=== PATIENT | male | born 1965 | race Caucasian/White ===

== ENCOUNTER 2018-10-25 14:33 | Inpatient (IN) | payer OTHER ==
[2018-10-25] MEDS ORDERED: MORPHINE SULFATE 4 MG/ML SYRINGE IV PRN (15:03)
[2018-10-25] MEDS ORDERED: ACETAMINOPHEN TAB 325 MG TAB PO PRN (15:03)
[2018-10-25] MEDS ORDERED: ONDANSETRON 4 MG/2 ML VIAL IVP PRN (15:03)
[2018-10-25] MEDS ORDERED: NALOXONE 0.4 MG/ML 1 ML VIAL IV PRN (15:03)
--- NOTE | 2018-10-25 15:04 | ED ---
ENT HPI - General Stated complaint: Dental /abcess Time Seen by Provider: 10/25/18 14:39 Source: patient, RN notes reviewed Mode of arrival: EMS Limitations: no limitations - History of Present Illness Initial comments: 53-year-old male presented to the ER as a transfer from [facility] for dental abscess. Patient has been on Pen-Vee K for last 4 days with no improvement, worsening symptoms. Patient was seen at [facility] was given clindamycin, has CT which showed subperiosteal abscess. Patient states he occasionally does have some drainage. Patient reports fevers and chills, night sweats. Patient has pain with movement of his jaw. Patient states he does have some known cavities. Patient offers no other complaints. Review of Systems ROS Statement: Those systems with pertinent positive or pertinent negative responses have been documented in the HPI. ROS Other: All systems not noted in ROS Statement are negative. Past Medical History Past Medical History: No Reported History History of Any Multi-Drug Resistant Organisms: None Reported Past Surgical History: No Surgical Hx Reported Past Psychological History: No Psychological Hx Reported Smoking Status: Current every day smoker Past Alcohol Use History: Occasional Past Drug Use History: None Reported General Exam Limitations: no limitations General appearance: alert, in no apparent distress Head exam: Present: atraumatic, normocephalic, normal inspection Eye exam: Present: normal appearance, PERRL, EOMI. Absent: scleral icterus, conjunctival injection, periorbital swelling ENT exam: Present: mucous membranes moist. Absent: normal oropharynx (Dental caries noted, large swelling on the right cheek, right mandibular region with tenderness) Neck exam: Present: normal inspection, full ROM, lymphadenopathy. Absent: tenderness, meningismus Respiratory exam: Present: normal lung sounds bilaterally. Absent: respiratory distress, wheezes, rales, rhonchi, stridor Cardiovascular Exam: Present: regular rate, normal rhythm, normal heart sounds. Absent: systolic murmur, diastolic murmur, rubs, gallop, clicks Course Vital Signs 10/25/18 14:36 Temperature 98.7 F Pulse Rate 104 H Respiratory 20 Rate Blood Pressure 160/97 O2 Sat by Pulse 96 Oximetry Medical Decision Making - Medical Decision Making 53-year-old male presented for dental abscess. Patient will be admitted for IV antibiotics, evaluation by oral surgery. Patient will continue clindamycin and will be placed on Rocephin. Disposition Clinical Impression: Subperiosteal abscess of jaw, Failure of outpatient treatment Disposition: ADMITTED IP TO THIS HOSP Condition: Fair Referrals: None,Stated [Primary Care Provider] - 1-2 days Time of Disposition: 15:03 Decision Time: 15:03
[2018-10-25] MEDS ORDERED: cefTRIAXone IN SWFI 1,000 MG/10 ML SYRINGE IVP STA (15:06)
[2018-10-25] MEDS: SODIUM CHLORIDE 0.9% 1,000 ML IV SCH (16:08)
[2018-10-25] MEDS ORDERED: DEXAMETHASONE SOD PHOSPHATE 10 MG/ML 1 ML VIAL IV STA (17:42)
[2018-10-25] MEDS: CLINDAMYCIN 600 MG in DEXTROSE 5% IN WATER 50 ML IVPB SCH ×4 (17:54→23:39)
[2018-10-25] MEDS: HYDROmorphone 0.5 MG/0.5 ML SYRINGE IVP PRN ×2 (17:54→21:34)
[2018-10-25] MEDS: HYDROcodone/APAP 5-325MG 1 EACH TAB PO PRN ×2 (19:30→23:46)
--- NOTE | 2018-10-25 23:42 | P.HPIM ---
History of Present Illness H&P Date: 10/25/18 Chief Complaint: Right-sided facial swelling and dental abscess Patient is a 53-year-old male without significant past medical history came to ER with complaints of right right-sided worsening facial swelling and pain. Patient says that he had right lower molar tooth pain about a week back and was seen by his physician and was started on antibiotics. Patient was getting penicillin for the past 4-5 days without improvement. Patient initially presented to [facility] ER. Patient had CT of the maxillofacial showed subperiosteal abscess. OMFS surgery was not available at the hospital and patient was transferred to [facility] for further management. Patient was given a dose of clindamycin IV. Patient has been having fever and chills and night sweats. Patient is unable to open his mouth and tolerate oral diet. Patient has been having swelling and pain with opening and right-sided facial swelling. No complaints of chest pain or shortness of breath. Patient was started on clindamycin and ceftriaxone was added. Was also given a dose of IV steroids. OMFS surgery is consulted. Review of Systems Constitutional: Patient denies any fever or chills . No generalized weakness or weight loss. Abdomen: Patient denied nausea vomiting and diarrhea and abdominal pain. Cardiovascular: Patient denies any chest pain or short of breath no palpitations. Respiratory: patient denied any cough is from production. No shortness of breath Neurologic: Patient denied any numbness or tingling headache. Musculoskeletal: Patient denies any complaints of joint swelling or deformity. Right facial swelling, pain and unable to open his mouth and tolerate oral diet. Skin: Negative Psychiatric: Negative Endocrine: No heat or cold intolerance. No recent weight gain. Genitourinary: No dysuria or hematuria. All other 14 point ROS negative except the above Past Medical History Past Medical History: No Reported History History of Any Multi-Drug Resistant Organisms: None Reported Past Surgical History: No Surgical Hx Reported Past Psychological History: No Psychological Hx Reported Smoking Status: Current every day smoker Past Alcohol Use History: Occasional Past Drug Use History: None Reported Medications and Allergies Home Medications Medication Instructions Recorded Confirmed Type Acetaminophen [Tylenol Extra 1,000 mg PO TID PRN 10/25/18 10/25/18 History Strength] Allergies Allergy/AdvReac Type Severity Reaction Status Date / Time No Known Allergies Allergy Verified 10/25/18 15:16 Physical Exam Vitals: Vital Signs Temp Pulse Pulse Resp BP BP Pulse Ox 10/25/18 17:30 98.6 F 103 H 18 155/87 96 10/25/18 17:27 98.7 F 109 H 16 139/101 96 10/25/18 16:26 109 H 16 139/101 96 10/25/18 14:36 98.7 F 104 H 20 160/97 96 Intake and Output 10/25/18 10/25/18 10/25/18 06:59 14:59 22:59 Intake Total 250 Balance 250 Intake: Amount of Fluid Infused ( 150 ml) Oral 100 Other: Weight 83.915 kg PHYSICAL EXAMINATION: Patient is lying in the bed comfortably, no acute distress, awake alert and oriented.. HEENT: Normocephalic. Neck is supple. Pupils reactive. Nostrils clear. Oral cavity is moist. Ears reveal no drainage. Right-sided facial/mandibular swelling and tenderness and unable to open his mouth completely. Neck reveals no JVD, carotid bruits, or thyromegaly. CHEST EXAMINATION: Trachea is central. Symmetrical expansion. Lung dyson clear to auscultation and percussion. CARDIAC: Normal S1, S2 with no gallops. No murmurs ABDOMEN: Soft. Bowel sounds normal. No organomegaly. No abdominal bruits. Extremities: reveal no edema. No clubbing or cyanosis Neurologically awake, alert, oriented x3 with well-coordinated movements. No focal deficits noted Skin: No rash or skin lesions. Psychiatric: Coperative. Nonsuicidal Musculoskeletal: No joint swelling or deformity. Normal range of motion. Thrombosis Risk Factor Assmnt - DVT/VTE Prophylaxis DVT/VTE Prophylaxis: Pharmacologic Prophylaxis ordered - Choose All That Apply Each Factor Represents 1 point: Age 41-60 years Thrombosis Risk Factor Assessment Total Risk Factor Score: 1 Thrombosis Risk Factor Assessment Level: Low Risk Assessment and Plan Assessment: Subperiosteal abscess of jaw. Failed outpatient antibiotic therapy. Tachycardia DVT prophylaxis with heparin subcu Plan: Patient be continued on IV hydration. Nothing by mouth. Continue with antibiot ics in the form of ceftriaxone and clindamycin. Was given a dose of IV steroids. Pain management . Oromaxillofacial surgery was consulted and notified. Follow-up CBC and BMP tomorrow. Further recommendations based on the clinical course. Time with Patient: Greater than 30
[2018-10-25] MEDS: HEPARIN SODIUM,PORCINE 5,000 UNIT/ML 1 ML VIAL SQ SCH (23:45)
[2018-10-26] MEDS: SODIUM CHLORIDE 0.9% 1,000 ML IV SCH ×2 (04:27→14:45)
[2018-10-26] MEDS: HYDROmorphone 0.5 MG/0.5 ML SYRINGE IVP PRN ×4 (05:44→17:46)
[2018-10-26] MEDS: CLINDAMYCIN 600 MG in DEXTROSE 5% IN WATER 50 ML IVPB SCH ×8 (05:46→23:18)
[2018-10-26] MEDS: HEPARIN SODIUM,PORCINE 5,000 UNIT/ML 1 ML VIAL SQ SCH ×3 (07:03→23:21)
[2018-10-26 08:09] LABS: Basophils % (A) 0 %; Eosinophils # (A) 0.1 k/uL (0-0.7); Eosinophils % (A) 0 %; HCT 43.8 % (39.0-53.0); HGB 14.8 gm/dL (13.0-17.5); Lymphocytes # (A) 1.2 k/uL (1.0-4.8); Lymphocytes % (A) 7 %; MCH 32.4 pg (25.0-35.0); MCHC 33.6 g/dL (31.0-37.0); MCV 96.3 fL (80.0-100.0); Mean Platelet Volume 6.6; Monocytes # (A) 0.7 k/uL (0-1.0); Monocytes % (A) 4 %; Neutrophils # (A) 14.2 k/uL (1.3-7.7); Neutrophils % (A) 87 %; Platelet Count 439 k/uL (150-450); RBC 4.55 m/uL (4.30-5.90); RDW 12.3 % (11.5-15.5); WBC 16.3 k/uL (3.8-10.6)
[2018-10-26 08:14] LABS: ALT 55 U/L (21-72); AST 36 U/L (17-59); African American GFR (CKD) >90 (>60 ml/min/1.73 sqM); Albumin 3.6 g/dL (3.5-5.0); Alkaline Phosphatase 108 U/L (38-126); Anion Gap 10 mmol/L; Blood Urea Nitrogen 13 mg/dL (9-20); Calcium 8.9 mg/dL (8.4-10.2); Carbon Dioxide 22 mmol/L (22-30); Chloride 105 mmol/L (98-107); Glucose 120 mg/dL (74-99); Potassium 4.8 mmol/L (3.5-5.1); Sodium 137 mmol/L (137-145); Total Bilirubin 0.4 mg/dL (0.2-1.3); Total Protein 6.8 g/dL (6.3-8.2)
--- NOTE | 2018-10-26 09:18 | CONS ---
CONSULTATION DATE OF CONSULTATION: 10/26/2018. CHIEF COMPLAINT: "My face is swollen". HISTORY OF PRESENT ILLNESS: The patient is a 53-year-old male who presented to the [facility] approximately 5 days ago with complaint of pain to the right mandibular molar with mild swelling. He was started on p.o. antibiotics. The pain and swelling increased and he presented to the [facility] where he was evaluated and transferred to [facility]. The patient states that the swelling has progressively increased and he has difficulty opening. He was in moderate distress at that time. A CT scan was obtained at [place] which showed subperiosteal swelling in the right mandibular region. The patient was admitted to [facility] and he has been on IV antibiotics with improvement this morning. The patient denies any dysphagia, odynophagia or a temperature. PAST MEDICAL HISTORY: His past medical history is unremarkable. He denies any cardiopulmonary disease, endocrine disease. SOCIAL HISTORY: He states that he is a smoker. He does not use any IV drugs and denies any drinking. REVIEW OF SYSTEMS: Reveals the patient to be in no apparent distress. He is resting comfortably in bed. PHYSICAL EXAMINATION: His vital signs are stable. He is afebrile. He is alert and oriented x3. His head and neck exam reveals moderate soft tissue swelling of the right mandibular region, which is significantly improved according to the patient. The area is tender to palpation and mildly firm and extends to the inferior border of the mandible. There is very little swelling in the submandibular region. Intraoral exam is limited secondary to trismus. However, the right buccal vestibule adjacent to tooth #32 exhibits swelling and tenderness with purulent drainage extruding from area #32. MEDICATIONS: His medications currently include IV Rocephin and clindamycin. LABS: Today his white count on October 25 was 16. ASSESSMENT: Right mandibular abscess secondary to tooth #32. PLAN: Continue the IV antibiotics. Heat to face. Soft diet. The patient will be discharged tomorrow morning directly to my office for extraction of the offending tooth. MMODL / IJN: [id number] /
[2018-10-26] MEDS: HYDROcodone/APAP 5-325MG 1 EACH TAB PO PRN ×4 (11:48→23:18)
[2018-10-26] MEDS ORDERED: DEXAMETHASONE SOD PHOSPHATE 10 MG/ML 1 ML VIAL IV STA (20:36)
--- NOTE | 2018-10-27 01:56 | P.PN ---
Subjective Progress Note Date: 10/26/18 Principal diagnosis: Subperiosteal abscess of jaw. Patient is a 53-year-old male without significant past medical history came to ER with complaints of right right-sided worsening facial swelling and pain. Patient says that he had right lower molar tooth pain about a week back and was seen by his physician and was started on antibiotics. Patient was getting penicillin for the past 4-5 days without improvement. Patient initially presented to [facility] ER. Patient had CT of the maxillofacial showed subperiosteal abscess. OMFS surgery was not available at the hospital and patient was transferred to [facility] for further management. Patient was given a dose of clindamycin IV. Patient has been having fever and chills and night sweats. Patient is unable to open his mouth and tolerate oral diet. Patient has been having swelling and pain with opening and right-sided facial swelling. No complaints of chest pain or shortness of br eath. Patient was started on clindamycin and ceftriaxone was added. Was also given a dose of IV steroids. OMFS surgery is consulted. 10/26/2018 Patient still having significant right chest pain and swelling and difficulty swallowing. Being continued on IV antibiotics in the form of ceftriaxone and clindamycin. Patient was seen by oromaxillary facial surgery and recommends to come to the clinic in the morning tomorrow from the Hospital directly but tooth extraction #32 Patient is being continued on pain management with [facility]. No fever no chills. WBC 16 Liquids as tolerated. No chest pain or shortness of breath. Current medications reviewed. Objective - Vital Signs Vital signs: Vital Signs Temp 97.7 F 10/26/18 21:08 Pulse 97 10/26/18 21:08 Resp 22 10/26/18 21:08 BP 151/87 10/26/18 21:08 Pulse Ox 97 10/26/18 21:08 Intake & Output 10/26/18 10/26/18 10/27/18 06:59 18:59 06:59 Intake Total 900 Balance 900 Intake: Oral 900 Other: # Voids 1 2 2 - Exam PHYSICAL EXAMINATION: Patient is lying in the bed comfortably, no acute distress, awake alert and oriented.. HEENT: Normocephalic. Neck is supple. Pupils reactive. Nostrils clear. Oral cavity is moist. Ears reveal no drainage. Right-sided facial/mandibular swelling and tenderness and unable to open his mouth completely. Neck reveals no JVD, carotid bruits, or thyromegaly. CHEST EXAMINATION: Trachea is central. Symmetrical expansion. Lung dyson clear to auscultation and percussion. CARDIAC: Normal S1, S2 with no gallops. No murmurs ABDOMEN: Soft. Bowel sounds normal. No organomegaly. No abdominal bruits. Extremities: reveal no edema. No clubbing or cyanosis Neurologically awake, alert, oriented x3 with well-coordinated movements. No focal deficits noted Skin: No rash or skin lesions. Psychiatric: Coperative. Nonsuicidal Musculoskeletal: No joint swelling or deformity. Normal range of motion. - Labs CBC & Chem 7: 10/26/18 07:40 10/26/18 07:40 Labs: Abnormal Lab Results - Last 24 Hours (Table) 10/26/18 10/26/18 Range/Units 07:40 07:40 WBC 16.3 H (3.8-10.6) k/uL Neutrophils # 14.2 H (1.3-7.7) k/uL Glucose 120 H (74-99) mg/dL Assessment and Plan Assessment: Subperiosteal abscess of jaw. Sepsis secondary to above Failed outpatient antibiotic therapy. Tachycardia and leukocytosis DVT prophylaxis with heparin subcu Plan: Patient be continued on IV hydration. Nothing by mouth. Continue with antibi otics in the form of ceftriaxone and clindamycin. Was given a dose of IV steroids. Pain management . Oromaxillofacial surgery was consulted and notified. Patient was seen by OMFS and troponins to follow-up in the clinic tomorrow. Follow-up CBC and BMP. Further recommendations based on the clinical course. Time with Patient: Greater than 30
[2018-10-27] MEDS: HYDROcodone/APAP 5-325MG 1 EACH TAB PO PRN (03:11)
[2018-10-27 05:36] VITALS: BP 122/68; PULSE 75; RESP 16; TEMP 97.9
[2018-10-27] MEDS: CLINDAMYCIN 600 MG in DEXTROSE 5% IN WATER 50 ML IVPB SCH ×2 (06:17)
[2018-10-27] MEDS ORDERED: DEXAMETHASONE SOD PHOSPHATE 10 MG/ML 1 ML VIAL IV ONE (08:00)
[2018-10-27] MEDS: HYDROmorphone 0.5 MG/0.5 ML SYRINGE IVP PRN (08:10)
[2018-10-27] MEDS: HEPARIN SODIUM,PORCINE 5,000 UNIT/ML 1 ML VIAL SQ SCH (08:22)
== END 2018-10-27 10:57 | disposition home or self-care (01) | DRG 872 ==
LOC: EC 14:33 → 4MS4W 16:04 → OBSVTOIN 10-26 11:30
PROVIDERS: ADMIT Internal Medicine; ATTEND Internal Medicine
DX: A41.9 Sepsis, unspecified organism (principal); M27.2 Inflammatory conditions of jaws; F17.200 Nicotine dependence, unspecified, uncomplicated
CPT/HCPCS: 80053; 85025; 96374; 96375; 99284